=== PATIENT | male | born 1980 | race African-American/Black ===

== ENCOUNTER 2021-07-16 02:01 | Emergency (ER) | payer MEDICAID ==
[~2021-07-16] VITALS: Ht 170.2 cm; Wt 100.0 kg
[2021-07-16 03:58] LABS: BASOPHILS % 0.3 % (0.0-2.0); EOSINOPHILS % 1.2 % (0.0-5.0); HEMATOCRIT. 43.7 % (42.0-52.0); HEMOGLOBIN. 15.1 g/dL (14.0-18.0); LYMPHOCYTES % 20.3 % (20.0-50.0); MEAN CORPUSCULAR HEMOGLOBIN 30.3 pg (28.0-32.0); MEAN CORPUSCULAR VOLUME 87.7 fL (80.0-94.0); MEAN PLATELET VOLUME 9.5 fl (7.4-10.4); MONOCYTES % 8.6 % (2.0-8.0); NEUTROPHILS % 69.6 % (40.0-76.0); PLATELET 190 x1000/uL (130-400); RED BLOOD CELL COUNT 4.98 mill/uL (4.7-6.1); RED CELL DISTRIBUTION WIDTH 13.8 % (11.6-14.6)
[2021-07-16 04:07] LABS: CHLORIDE 105 mEq/L (98-107)
[2021-07-16] MEDS ORDERED: METHYLPREDNISOLONE SOD SUCC 125 MG/2 ML VIAL IV STA (05:11)
[2021-07-16] MEDS ORDERED: AZIT250T12 MT (06:15)
[2021-07-16 07:00] VITALS: BP 129/81
== END 2021-07-16 07:00 | disposition home or self-care (01) ==
LOC: ER 02:01
DX: Z20.822 Contact with and (suspected) exposure to COVID-19 (principal); Z88.0 Allergy status to penicillin; I49.9 Cardiac arrhythmia, unspecified; R51.9 Headache, unspecified
CPT/HCPCS: 36415; 70491; 71045; 80053; 83605; 83880; 84484; 85025; 87070; 87430; 87804; 93005; 96374; 99285; C9803; J2930; U0003; U0005